=== PATIENT | male | born 1995 | race Caucasian/White ===

== ENCOUNTER 2017-06-11 15:38 | Emergency (ER) | payer OTHER ==
[~2017-06-11] VITALS: Ht 175.3 cm; Wt 136.1 kg
[2017-06-11 16:17] VITALS: BP 155/99
[2017-06-11] MEDS ORDERED: FAMOTIDINE 20 MG TAB PO ONE (18:25)
[2017-06-11] MEDS ORDERED: diphenhydrAMINE 50 MG/ML VIAL IM ONE (18:25)
[2017-06-11] MEDS ORDERED: DEXAMETHASONE 10 MG/ML VIAL IM ONE (18:25)
[2017-06-11 19:02] VITALS: BP 155/99
== END 2017-06-11 19:03 | disposition home or self-care (01) ==
LOC: MED 15:38
DX: T78.1XXA Other adverse food reactions, not elsewhere classified, initial encounter (principal); R06.02 Shortness of breath; L29.9 Pruritus, unspecified; X58.XXXA Exposure to other specified factors, initial encounter
CPT/HCPCS: 96372; 99284; J1100; J1200

== ENCOUNTER 2019-04-10 09:27 | Emergency (ER) | payer SELFPAY ==
[~2019-04-10] VITALS: Ht 175.3 cm; Wt 182.9 kg
--- NOTE | 2019-04-10 09:32 | NUR ---
PATIENT AMBULATED TO BED 2 AT THIS TIME.
[2019-04-10 09:36] VITALS: BP 140/79
--- NOTE | 2019-04-10 09:43 | NUR ---
24/M BIB SELF C/O ADALBERTO EYES PAIN ,REDNESS, WATERY X 5 DAYS. DENIES VISION CHANGES OR TRAUMA. SEEN BY PCP 4 DAYS AGO & GOT EYE DROP. PATIENT POSITIONED FOR COMFORT; HOB ELEVATED; BEDRAILS UP X1; BED DOWN. ER MD MADE AWARE OF PT STATUS.
--- NOTE | 2019-04-10 09:46 | NUR ---
Patient being evaluated by DR OSEGUERA at bedside.
[2019-04-10 10:10] VITALS: BP 132/78
== END 2019-04-10 10:10 | disposition home or self-care (01) ==
LOC: MED 09:27
DX: H10.33 Unspecified acute conjunctivitis, bilateral (principal)
CPT/HCPCS: 99283